=== PATIENT | male | born 1990 | race Caucasian/White ===

== ENCOUNTER 2020-03-20 13:51 | Emergency (ER) | payer MEDICAID ==
[~2020-03-20] VITALS: Ht 182.9 cm; Wt 75.5 kg
[2020-03-20 17:44] LABS: RSV AMPLIFICATION NEGATIVE (NEGATIVE)
[2020-03-20 17:55] LABS: AMPHETAMINES LEVEL URINE NEGATIVE (NEGATIVE); BARBITURATES URINE NEGATIVE (NEGATIVE); BENZODIAZEPINES URINE NEGATIVE (NEGATIVE); CANNABINOIDS URINE POSITIVE (NEGATIVE); COCAINE METABOLITE URINE NEGATIVE (NEGATIVE); METHADONE URINE NEGATIVE (NEGATIVE); OPIATES URINE NEGATIVE (NEGATIVE); PHENCYCLIDINE URINE NEGATIVE (NEGATIVE)
--- NOTE | 2020-03-20 18:33 | REP ---
INDICATION: Syncope/near-syncope COMPARISON: None. TECHNIQUE: Portable AP view of the chest FINDINGS: The mediastinum and cardiac silhouette are stable and within normal limits for portable technique. The lung [place] are clear without acute consolidation, effusion, or pneumothorax. Skeletal structures are intact. IMPRESSION: No acute cardiopulmonary process appreciated. <Electronically signed by Wilfredo May > 03/20/20 [id number]
[2020-03-20 19:19] VITALS: BP 135/96
[2020-03-20 19:22] LABS: INR 0.85; PROTHROMBIN TIME 11.8 SECONDS (12.5-14.3)
[2020-03-20 19:23] LABS: PARTIAL THROMBOPLASTIN TIME 26.9 SECONDS (24.2-38.5)
[2020-03-20 19:25] LABS: D-DIMER QUANT 977.56 ng/ml (<500)
--- NOTE | 2020-03-21 00:36 | ECGEPIP ---
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
--- NOTE | 2020-03-21 08:55 | REP ---
INDICATION: fall/syncope COMPARISON: None. TECHNIQUE: Axial noncontrast images from the skull base to the vertex with coronal reformations. This CT examination was performed using the following dose reduction techniques: Automated exposure control, adjustment of mA and/or kv according to the patient's size, and use of iterative reconstruction technique. FINDINGS: The ventricles, sulci, and cisterns are normal in position and appearance. Sheffield-white differentiation is maintained. No acute intracranial hemorrhage, mass/mass effect, pathology or trauma/injury. No evidence for acute infarction. No extra-axial fluid collection. Calvarium is intact. Incidental mucoperiosteal changes to the maxillary sinuses including 2.7 cm left mucosal. IMPRESSION: No evidence for acute intracranial pathology or trauma/injury. Initial preliminary report by [facility] received by clinician 03/20/2020. <Electronically signed by Wilfredo May > 03/21/20 0819
--- NOTE | 2020-03-21 09:00 | REP ---
INDICATION: fall/syncope COMPARISON: None. TECHNIQUE: Axial noncontrast images from the skull base to the thoracic inlet with coronal and sagittal re-formations This CT examination was performed using the following dose reduction techniques: Automated exposure control, adjustment of mA and/or kv according to the patient's size, and use of iterative reconstruction technique. FINDINGS: Normal alignment and lordosis is maintained. Cervical vertebral bodies including transverse processes and spinous processes are intact and there is no evidence for acute fracture / compression injury or subluxation. Spinal canal is patent. Posterior elements are intact. Paravertebral soft tissues are normal. IMPRESSION: Normal, age-appropriate noncontrast cervical spine CT. No evidence for acute pathology or trauma/injury. Initial preliminary report by [facility] sent to the ER clinician 03/20/2020 at 7 p.m. <Electronically signed by Wilfredo May > 03/21/20 [id number]
--- NOTE | 2020-03-21 10:35 | REP ---
INDICATION: fall/syncope COMPARISON: None. TECHNIQUE: Axial noncontrast images through the facial bones to include the mandible with coronal and sagittal re-formations. FINDINGS: The osseous structures appear intact and without obvious acute fracture. The bilateral zygomatic arches are intact. Orbital suresh and maxillary suresh appear intact. Motion artifact limits evaluation of the mandible although no obvious fracture is appreciated and the bilateral temporomandibular joints appear stable. Mucoperiosteal changes to the ethmoid and maxillary sinuses noted along with very small fluid levels in the dependent portion of the maxillary sinuses and 2.7 cm left maxillary mucocele suggesting sinusitis. The bilateral orbits are symmetric and without associated injury or obvious pathology. IMPRESSION: 1. Findings suggesting sinusitis. 2. No obvious acute fracture or dislocation. Initial preliminary report by [facility] sent to the clinician on 03/20/2020 at 6:58 p.m.. <Electronically signed by Wilfredo May > 03/21/20 [id number]
== END 2020-03-20 20:03 | disposition home or self-care (01) ==
LOC: M ED 13:51
DX: R55 Syncope and collapse (principal); F12.10 Cannabis abuse, uncomplicated